=== PATIENT | male | born 1970 | race Caucasian/White ===

== ENCOUNTER 2019-09-26 05:50 | Emergency (ER) | payer OTHER ==
[~2019-09-26] VITALS: Ht 170.2 cm; Wt 71.2 kg
[2019-09-26] MEDS ORDERED: ZESTORETIC 20-1 EACH PO (06:18)
[2019-09-26] MEDS ORDERED: PREDNISONE20 MG PO (06:18)
[2019-09-26] MEDS ORDERED: NORCO 5-325 TA1 EACH PO (06:18)
== END 2019-09-26 06:29 | disposition home or self-care (01) ==
LOC: ED 05:50
DX: M10.9 Gout, unspecified (principal); Z88.0 Allergy status to penicillin
CPT/HCPCS: 99283; J7512

== ENCOUNTER 2020-01-22 13:01 | Emergency (ER) | payer OTHER ==
[~2020-01-22] VITALS: Ht 170.2 cm; Wt 71.2 kg
[~2020-01-22 13:01] MED LIST: NORCO 5-325 TA1 EACH PO; PREDNISONE20 MG PO; ZESTORETIC 20-1 EACH PO
[2020-01-22] MEDS ORDERED: MORPHINE SULFAT15 MG PO (16:01)
[2020-01-22] MEDS ORDERED: PREDNISONE20 MG PO (16:01)
== END 2020-01-22 16:16 | disposition home or self-care (01) ==
LOC: ED 13:01
DX: M10.9 Gout, unspecified (principal); I10 Essential (primary) hypertension; F41.9 Anxiety disorder, unspecified; F17.200 Nicotine dependence, unspecified, uncomplicated; Z88.0 Allergy status to penicillin; Z79.899 Other long term (current) drug therapy
CPT/HCPCS: 73560; 80053; 82945; 84157; 85025; 85032; 85651; 86140; 89051; 99283-25

== ENCOUNTER 2020-04-24 18:00 | Emergency (ER) | payer OTHER ==
[~2020-04-24] VITALS: Ht 170.2 cm; Wt 71.2 kg
[~2020-04-24 18:00] MED LIST changes: +MORPHINE SULFAT15 MG PO
[2020-04-24] MEDS ORDERED: IBUPROFEN200 M1 PO (18:14)
== END 2020-04-24 21:17 | disposition home or self-care (01) ==
LOC: ED 18:00
DX: M70.52 Other bursitis of knee, left knee (principal); I10 Essential (primary) hypertension; F17.200 Nicotine dependence, unspecified, uncomplicated; Z88.0 Allergy status to penicillin
CPT/HCPCS: 73562; 99283-25